=== PATIENT | female | born 1965 | race Caucasian/White ===

== ENCOUNTER 2021-01-18 09:54 | Outpatient (CLI) | payer BC ==
--- NOTE | 2021-01-18 12:02 | Ultrasound Report ---
PROCEDURE: Abdomen Limited INDICATIONS: HEPATIC CYST TECHNIQUE: Real-time focused scanning was performed of the abdomen, with image documentation. COMPARISON: None FINDINGS: There are 3 separate small echogenic foci in the liver which have imaging characteristics consistent with probable hemangiomas. A more superior right lobe lesion measures 1.6 x 1.5 x 1.2 cm. More inferiorly in the right lobe is a 0.9 x 0.8 x 0.8 cm echogenic lesion. In the left lobe is a 1.4 x 0.9 x 1.5 cm echogenic lesion. No suspicious masses are identified. There are no hepatic cyst seen . Visualized portions of pancreas are unremarkable. No dilated ducts. Common hepatic duct measures 1.5 mm. Right kidney measures 10.2 cm with no hydronephrosis. Gallbladder is unremarkable. IMPRESSION: 3 separate small echogenic lesions in the liver are consistent with small hemangiomata. Reviewed by: Arik Thurston MD on 01/18/2021 12:01 PM PST Approved by: Arik Thurston MD on 01/18/2021 12:01 PM PST Station ID: [id number]
== END 2021-01-18 09:55 | disposition home or self-care (01) ==
LOC: DI 09:54
PROVIDERS: ATTEND Physician Assistant Medical
DX: K76.89 Other specified diseases of liver (principal)